=== PATIENT | male | born 1965 | race Caucasian/White ===

== ENCOUNTER 2017-07-18 20:48 | Emergency (ER) | payer OTHER ==
[2017-07-18] MEDS ORDERED: Fluorescein Sodium TOPICAL* 1 MG TEST OPHTHALMIC ONE (22:49)
--- NOTE | 2017-07-18 22:49 | UC ---
Eye Complaint HPI - HPI Summary HPI Summary: watery drainage from eye after being out in the [place] all day working began 2 days ago-no vision issues, clear drainage, itchy eye, no relief with Visine A - History of Current Complaint Chief Complaint: UCEye Stated Complaint: EYE DOMPLAINT Time Seen by Provider: 07/18/17 22:42 Hx Obtained From: Patient Onset/Duration: Gradual Onset, Lasting Days - 3, Still Present Timing: Constant Severity Initially: Moderate Severity Currently: Moderate Location of Injury: Conjunctiva Character: Foreign Body Sensation - /Itchy Aggravating Factor(s): Nothing Alleviating Factor(s): Nothing Associated Signs And Symptoms: Positive: Drainage (Clear). Negative: Photophobia, Vision Impairment Bilateral, Vision Impairment Right, Vision Impairment Left - Allergies/Home Medications Allergies/Adverse Reactions: Allergies Allergy/AdvReac Type Severity Reaction Status Date / Time No Known Allergies Allergy Verified 07/18/17 20:58 Home Medications: Home Medications Naphazoline W/ Pheniramine [Visine-A 0.025-0.3 %] 2 drop BOTH EYES BID 07/18/17 [History Confirmed 07/18/17] PMH/Surg Hx/FS Hx/Imm Hx Previously Healthy: Yes - Surgical History Surgical History: Yes Surgery Procedure, Year, and Place: Facial surgery - Family History Known Family History: Positive: Other - daughter with Lyme - Social History Occupation: Employed Full-time Lives: With Family Alcohol Use: Occasionally Substance Use Type: None Smoking Status (MU): Never Smoked Tobacco Review of Systems Constitutional: Negative Skin: Negative Eyes: Drainage, Eye Redness ENT: Negative Respiratory: Negative Cardiovascular: Negative Gastrointestinal: Negative Genitourinary: Negative Motor: Negative Neurovascular: Negative Musculoskeletal: Negative Neurological: Negative Psychological: Negative Is Patient Immunocompromised?: No All Other Systems Reviewed And Are Negative: Yes Physical Exam Triage Information Reviewed: Yes Appearance: Well-Appearing, No Pain Distress, Well-Nourished Vital Signs: Initial Vital Signs Temp 97.8 F 07/18/17 20:53 Pulse 65 07/18/17 20:53 Resp 12 07/18/17 20:53 BP 126/87 07/18/17 20:53 Pulse Ox 100 07/18/17 20:53 Vital Signs Reviewed: Yes Eye Exam: Normal Eyes: Positive: Conjunctiva Inflamed, Discharge - clear ENT Exam: Normal ENT: Positive: Normal ENT inspection, Hearing grossly normal, Pharynx normal, TMs normal. Negative: Nasal congestion, Nasal drainage, Trismus, Muffled/ hoarse voice Dental Exam: Normal Neck exam: Normal Neck: Positive: Supple, Nontender, No Lymphadenopathy Respiratory Exam: Normal Respiratory: Positive: Chest non-tender, No respiratory distress, No accessory muscle use Cardiovascular Exam: Normal Cardiovascular: Positive: RRR, Pulses Normal, Brisk Capillary Refill Musculoskeletal Exam: Normal Musculoskeletal: Positive: Strength Intact, ROM Intact, No Edema Neurological Exam: Normal Neurological: Positive: Alert, Muscle Tone Normal Psychological Exam: Normal Skin Exam: Normal Re-Evaluation - Re-Evaluation First Eval Change: Unchanged - no dye uptake in either eye with staining Eye Complaint Course/Dx - Course Course Of Treatment: stop visine A change to Zaditor use Zyrtec if not resolving in 2 days follow with Opthomology - Differential Dx/Diagnosis Differential Diagnosis/HQI/PQRI: Conjunctivitis, Corneal Abrasion, Glaucoma Provider Diagnoses: Allergic Conjuctivitis Discharge - Discharge Plan Condition: Stable Disposition: HOME Patient Education Materials: Cetirizine (By mouth), Ketotifen (Into the eye) Referrals: Isreal Anderson MD [Medical Doctor] - 2 Days
[2017-07-18] MEDS ORDERED: BSS OPTH.SOL* BTL OPHTHALMIC ONE (22:50)
[2017-07-18 23:29] VITALS: BP 126/78
== END 2017-07-18 23:23 | disposition home or self-care (01) ==
LOC: UCEAST 20:48
DX: H10.10 Acute atopic conjunctivitis, unspecified eye (principal)
CPT/HCPCS: 99212; A9270-GY; G0463